=== PATIENT | female | born 1995 | race Caucasian/White ===

== ENCOUNTER → 2017-05-12 | Outpatient (CLI) | payer BC, OTHER | END | disposition home or self-care (01) | LOC: C.LABSPEC 15:59 | PROVIDERS: ATTEND Obstetrics & Gynecology | DX: Z34.01 Encounter for supervision of normal first pregnancy, first trimester (principal) ==

== ENCOUNTER → 2017-05-15 | Outpatient (CLI) | payer BC ==
[2017-05-15 10:03] LABS: BASO % 0.2 %; BASO ABS # 0.01 K/uL (0-0.2); EOS % 0.3 %; EOS ABS # 0.02 K/uL (0-0.5); HEMATOCRIT 38.1 % (37-47); HEMOGLOBIN 12.8 g/dL (12.0-16.0); IG# 0.01 K/uL (0.00-0.02); LYMPH % 16.5 %; LYMPH ABS # 1.04 K/uL (1.2-3.4); MEAN CELL VOLUME 90.1 fL (80-100); MEAN CORPUSCULAR HEMOGLOBIN 30.3 pg (25-34); MEAN CORPUSCULAR HGB CONC 33.6 g/dl (32-36); MEAN PLATELET VOLUME 9.5 fL (7.4-10.4); MONO % 7.9 %; NEUT % 74.9 %; NEUT ABS # 4.74 K/uL (1.4-6.5); PLATELET COUNT 262 K/uL (130-400); RED CELL DISTRIBUTION WIDTH CV 11.7 % (11.5-14.5); RED CELL DISTRIBUTION WIDTH SD 38.6 fL (36.4-46.3); WHITE BLOOD COUNT 6.32 K/uL (4.8-10.8)
== END | disposition home or self-care (01) ==
LOC: C.LAB1850 09:04
PROVIDERS: ATTEND Obstetrics & Gynecology
DX: Z34.01 Encounter for supervision of normal first pregnancy, first trimester (principal)

== ENCOUNTER → 2017-05-15 | Outpatient (CLI) | payer BC | END | disposition home or self-care (01) | LOC: C.LABSPEC 11:04 | PROVIDERS: ATTEND Obstetrics & Gynecology | DX: Z34.01 Encounter for supervision of normal first pregnancy, first trimester (principal) ==

== ENCOUNTER → 2017-10-06 | Outpatient (CLI) | payer BC ==
[2017-10-06 17:35] LABS: HEMATOCRIT 36.1 % (37-47)
== END | disposition home or self-care (01) ==
LOC: C.LAB1850 16:20
PROVIDERS: ATTEND Obstetrics & Gynecology
DX: Z34.03 Encounter for supervision of normal first pregnancy, third trimester (principal)

== ENCOUNTER → 2017-10-13 | Outpatient (CLI) | payer BC | END | disposition home or self-care (01) | LOC: C.LAB1850 07:02 | PROVIDERS: ATTEND Obstetrics & Gynecology | DX: O28.1 Abnormal biochemical finding on antenatal screening of mother (principal); Z3A.00 Weeks of gestation of pregnancy not specified ==

== ENCOUNTER 2019-11-16 03:55 | Inpatient (IN) ==
[2019-11-16] MEDS ORDERED: LACTATED RINGER'S 1,000 ML IV PRN (04:07)
[2019-11-16] MEDS ORDERED: OXYTOCIN 30 UNITS/500 ML BAG IV PRN (04:07)
[2019-11-16] MEDS ORDERED: bisacodyL 10 MG SUPP PR PRN (04:25)
[2019-11-16] MEDS ORDERED: HYDROCORTISONE ACETATE 25 MG SUPP PR PRN (04:25)
[2019-11-16] MEDS ORDERED: SUPERCREAM 0.870% 15 GM JAR EXT PRN (04:25)
[2019-11-16] MEDS ORDERED: BENZOCAINE 20% AER SPR 82.5 GM CAN EXT PRN (04:25)
[2019-11-16] MEDS ORDERED: DIPHTHERIA/TETANUS/PERTUSSIS 0.5 ML SYR/VIAL IM ONE (04:25)
[2019-11-16] MEDS ORDERED: ACETAMINOPHEN 325 MG TAB PO PRN (04:25)
[2019-11-16] MEDS ORDERED: OXYTOCIN 10 UNITS/ML VIAL IM ONE (04:25)
[2019-11-16] MEDS: IBUPROFEN 600 MG TAB PO PRN ×2 (05:06→16:15)
[2019-11-16] MEDS: PRENATAL VITAMIN 1 TAB PO SCH (08:43)
[2019-11-16] MEDS: DOCUSATE SODIUM 100 MG CAP PO SCH ×2 (08:44→20:35)
--- NOTE | 2019-11-16 09:10 | Delivery Summary ---
DATE OF OPERATION: 11/16/2019 PROCEDURE: Normal spontaneous vaginal delivery. SURGEON: Travis Escamilla MD. ESTIMATED BLOOD LOSS: 200 mL DRAINS: None. FLUIDS: None. URINE OUTPUT: None. COMPLICATIONS: None. FINDINGS: Viable female infant with weight of 9 pounds 13.3 ounces and Apgars of 9 and 9 at 1 and 5 minutes respectively. INDICATIONS: The patient is a 24-year-old G3, P1 at 39 weeks 4 days gestational age. The patient presented to labor and delivery in active labor and underwent a precipitous delivery within several minutes of arriving. Patient was initially found to be around 7 cm dilated with bulging membranes. Within several minutes, went to a complete rupture and delivered. DESCRIPTION OF PROCEDURE: The patient progressed to 10 cm dilated, 100% effaced, +3 station, pushed over 1 push without anesthesia and delivered a viable female with weight and Apgars as noted above. The delivery was precipitous as noted per above. Head of the presented in VALENTIN position, rest to left transverse. No nuchal was noted. Body and shoulders quickly followed. was delivered to maternal abdomen and was noted to be vigorous upon delivery. One minute later a 30-second delayed cord clamping was initiated, after which the cord was double clamped and cut. remained on maternal abdomen. Cord blood was obtained. Attention was then turned to deliver of the placenta, which delivered intact, 3-vessel cord, gentle cord traction. On inspection of perineum, vagina, and cervix, there noted to be no lacerations. Both mother and were stable immediate postdelivery. Sponge and instrument counts were correct at the completion of the case. I attest to the content of the Intraoperative Record and any orders documented therein. Any exception s are noted below.
[2019-11-17 06:50] LABS: Hematocrit (blood only) 36.5 % (37-47); Hemoglobin 11.5 g/dL (12.0-16.0); Mean Corpuscular Hemoglobin 29.9 pg (25-34); Mean Corpuscular Hgb Conc 31.5 g/dL (32-36); Mean Corpuscular Volume 94.8 fL (80-100); Mean Platelet Volume 9.8 fL (7.4-10.4); Nucleated RBC # (auto) 0.07 K/uL (0-0); Nucleated RBC % (auto) 0.8 %; Platelet Count 241 K/uL (130-400); RDW Coefficient of Variation 13.6 % (11.5-14.5); RDW Standard Deviation 46.9 fL (36.4-46.3); Red Blood Count 3.85 M/uL (4.2-5.4); White Blood Count 9.03 K/uL (4.8-10.8)
[2019-11-17] MEDS: PRENATAL VITAMIN 1 TAB PO SCH (07:43)
[2019-11-17] MEDS: DOCUSATE SODIUM 100 MG CAP PO SCH (07:43)
--- NOTE | 2019-11-17 09:27 | Obstetrical Progress Note ---
Date of Service November 17, 2019 Assessment & Plan (1) Encounter for care and examination after delivery: satisfactory course wishes to be discharged f/u in 6 weeks Day #:: 1 Subjective Ambulation: ambulating normally Voiding: no voiding problems Passing Gas:: Yes Diet Tolerance:: regular diet Lochia:: Small Feeding Type:: breast feeding (pumping) Review of Systems All systems reviewed & are unremarkable except as noted in HPI & below Physical Exam Constitutional WD/WN, vitals as above Psychiatric A+Ox3, euthymic affect Genitourinary OB Exam Abdomen: + fundal height (2 below U) Fundus: + firm Results & Data ([facility]) Vital Signs (Past 12 Hours) Vital Signs Temp Pulse Resp BP 11/17/19 08:02 97.9 F 69 20 120/76 11/17/19 05:00 98.1 F 71 16 112/70 11/16/19 23:35 97.5 F L 59 L 16 120/73
[2019-11-17] MEDS ORDERED: bisacodyL 5 MG TABEC PO SCH (20:00)
== END 2019-11-17 10:50 | disposition home or self-care (01) | DRG 807 ==
LOC: OPB 03:55 → 4S1 03:56 → 4S2 06:35